=== PATIENT | female | born 1995 | race Caucasian/White ===

== ENCOUNTER 2018-02-18 14:07 | Emergency (ER) | payer SELFPAY ==
[2018-02-18 14:22] VITALS: BMI 36.3
--- NOTE | 2018-02-18 14:23 | PDOC ---
Rapid Medical Evaluation Time Seen by Provider: 02/18/18 14:19 Medical Evaluation: 02/18/18 14:19 The patient presents with a chief complaint of: Lower abdominal pain for two weeks. Feels like if she stands up too long she gets dizzy. LMP 01/03/18. Concerned she may be . Home negative I have performed a brief in-person evaluation of this patient; Pertinent physical exam findings: ambulatory, in no respiratory distress I have ordered the following: CBC, CMP, PT/INR, Lipase, UA, UC, Upreg The patient will proceed to the ED for further evaluation.
[2018-02-18 15:02] LABS: BASO % 0.6 % (0-2.0); EOS % 1.6 % (0-4.5); HEMATOCRIT 41.3 % (32.4-45.2); HEMOGLOBIN 14.1 GM/dL (10.7-15.3); MCH 29.2 pg (25.7-33.7); MCHC 34.2 g/dl (32.0-36.0); MEAN CELL VOLUME 85.5 fl (80-96); MEAN PLT VOLUME 8.5 fl (7.5-11.1); MONO % 5.2 % (3.8-10.2); NEUT % 64.6 % (42.8-82.8); PLATELET COUNT 418 K/MM3 (134-434); RBC 4.83 M/mm3 (3.60-5.2); RDW 13.7 % (11.6-15.6); WHITE BLOOD COUNT 12.4 K/mm3 (4.0-10.0)
--- NOTE | 2018-02-18 15:05 | PDOC ---
History of Present Illness - General History Source: Patient Exam Limitations: No Limitations - History of Present Illness Initial Comments: 02/18/18 16:45 The patient is a 22-year-old female, with no significant past medical history, who presents to the ED with 2 days of suprapubic abdominal pain and nausea. The patient's last menstrual period was on 01/03/18; patient is concerned if she is but did take two tests at home that were negative. The patient is sexually active with her , but has not had intercourse in the past few days due to the pain. She denies any history of cysts or fibroids. She reports experiencing occasional shortness of breath over the past 2 weeks; usually comes on when she is ambulating around her home. The patient denies any dysuria, hematuria, frequency, urgency, or hesitancy. Denies any vaginal bleeding or vaginal discharge. Allergies: NKA Surgical History: (3 years ago) Social History: Denies PCP: None <Kristine Beckham - Last Filed: 02/18/18 17:10> - General History Source: Patient Exam Limitations: No Limitations <Trudy Cordero - Last Filed: 02/20/18 19:29> - General Chief Complaint: Pain Stated Complaint: LOWER ABD PAIN Time Seen by Provider: 02/18/18 14:19 Past History <Kristine Beckham - Last Filed: 02/18/18 17:10> - Past Medical History COPD: No - Suicide/Smoking/Psychosocial Hx Smoking History: Never smoked Have you smoked in the past 12 months: No Information on smoking cessation initiated: No Hx Alcohol Use: No Drug/Substance Use Hx: No Substance Use Type: None <Trudy Cordero - Last Filed: 02/20/18 19:29> - Past Medical History Allergies/Adverse Reactions: Allergies Allergy/AdvReac Type Severity Reaction Status Date / Time No Known Allergies Allergy Verified 02/18/18 14:23 Review of Systems - Review of Systems Able to Perform ROS?: Yes Comments:: 02/18/18 16:45 GENERAL/CONSTITUTIONAL: No: fever, chills, weakness, loss of appetite. HEAD, EYES, EARS, NOSE AND THROAT: No: change in vision, ear pain, discharge, sore throat, throat swelling. CARDIOVASCULAR: No: chest pain, lightheadedness, palpitations, syncope RESPIRATORY: No: cough, shortness of breath, wheezing, hemoptysis, stridor. GASTROINTESTINAL: (+)suprapubic pain, nausea. No: vomiting, diarrhea, rectal bleeding, constipation. GENITOURINARY: No: dysuria, hematuria, frequency, urgency, flank pain. MUSCULOSKELETAL: No: back pain, neck pain, joint pain, muscle swelling or pain SKIN AND BREASTS: No: lesions, pallor, rash or easy bruising. NEUROLOGIC: No: headache, vertigo, paresthesias, weakness ENDOCRINE: No: unexplained weight gain or loss HEMATOLOGIC/LYMPHATIC: No: anemia, easy bleeding, swelling nodes <ChapincitoKristine - Last Filed: 02/18/18 17:10> *Physical Exam - Vital Signs Last Vital Signs Temp Pulse Resp BP Pulse Ox 98.4 F 114 H 16 141/94 100 02/18/18 14:20 02/18/18 14:20 02/18/18 14:20 02/18/18 14:20 02/18/18 14:20 - Physical Exam Comments: 02/18/18 16:46 GENERAL: The patient is in no acute distress. HEAD: Normal with no signs of trauma. EYES: PERRLA, EOMI, sclera anicteric, conjunctiva clear. ENT: Ears normal, nares patent, oropharynx clear without exudates. Moist mucous membranes. NECK: Normal range of motion, supple without lymphadenopathy, JVD, or masses. LUNGS: Breath sounds equal, clear to auscultation bilaterally. No wheezes, and no crackles. HEART:Regular rate and rhythm, normal S1 and S2 without murmur, rub or gallop. ABDOMEN: Soft, nontender, normoactive bowel sounds. No guarding, no rebound. EXTREMITIES: Normal range of motion, no edema. No clubbing or cyanosis. No erythema, or tenderness. NEUROLOGICAL: Cranial nerves II through XII grossly intact. Normal speech. No focal neurological deficits. MUSCULOSKELETAL: Back non-tender to palpation, no CVA tenderness SKIN: Warm, Dry, normal turgor, no rashes or lesions noted. Pelvic Exam: No discharge No cmt Normal external genitalia <ChapincitoKristine - Last Filed: 02/18/18 17:10> - Vital Signs Last Vital Signs Temp Pulse Resp BP Pulse Ox 98.4 F 114 H 16 141/94 100 02/18/18 14:20 02/18/18 14:20 02/18/18 14:20 02/18/18 14:20 02/18/18 14:20 <Trudy Cordero - Last Filed: 02/20/18 19:29> ED Treatment Course - LABORATORY CBC & Chemistry Diagram: 02/18/18 14:34 02/18/18 14:34 - ADDITIONAL ORDERS Additional order review: Laboratory Results 02/18/18 02/18/18 02/18/18 14:52 14:34 14:34 PT with INR INR Sodium 139 Potassium 4.2 Chloride 103 Carbon Dioxide 23 Anion Gap 13 BUN 9 Creatinine 0.6 Creat Clearance w eGFR > 60 Random Glucose 116 H Calcium 9.6 Total Bilirubin 0.2 AST 37 ALT 86 H Alkaline Phosphatase 77 Total Protein 8.3 H Albumin 4.1 Lipase 207 Urine Color Yellow Urine Appearance Slcloudy Urine pH 5.0 Ur Specific [place] 1.024 Urine Protein 1+ H Urine Glucose (UA) Negative Urine Ketones Trace H Urine Blood 1+ H Urine Nitrite Negative Urine Bilirubin Negative Urine Urobilinogen Negative Ur Leukocyte Esterase Trace Urine WBC (Auto) 4 Urine RBC (Auto) 5 Ur Epithelial Cells Rare Urine Bacteria Rare Urine Mucus Rare Urine HCG, Qual 02/18/18 02/18/18 14:34 14:15 PT with INR 11.30 INR 1.00 Sodium Potassium Chloride Carbon Dioxide Anion Gap BUN Creatinine Creat Clearance w eGFR Random Glucose Calcium Total Bilirubin AST ALT Alkaline Phosphatase Total Protein Albumin Lipase Urine Color Urine Appearance Urine pH Ur Specific [place] Urine Protein Urine Glucose (UA) Urine Ketones Urine Blood Urine Nitrite Urine Bilirubin Urine Urobilinogen Ur Leukocyte Esterase Urine WBC (Auto) Urine RBC (Auto) Ur Epithelial Cells Urine Bacteria Urine Mucus Urine HCG, Qual Negative 02/18/18 14:34 RBC 4.83 MCV 85.5 MCHC 34.2 RDW 13.7 MPV 8.5 Neutrophils % 64.6 Lymphocytes % 28.0 Monocytes % 5.2 Eosinophils % 1.6 Basophils % 0.6 <Kristine Beckham - Last Filed: 02/18/18 17:10> - LABORATORY CBC & Chemistry Diagram: 02/18/18 14:34 02/18/18 14:34 <Trudy Cordero - Last Filed: 02/20/18 19:29> Medical Decision Making - Medical Decision Making Ms Pinzon presents to the ER with a complaint of suprapubic pain, irregular period, She has taken 2 tests Both negative No discharge No fevers or chills No flank pain Pt also reports shortness of breath intermittently No cough No chest pain No dyspnea on exertion No orthopnea On exam: Suprapubic tenderness No CMT, no adnexal fullness, no concerning discharge DD: UTI, Cystitis, Unlikely PID, torsion, ruptured cyst, endometriosis SOB: Bronchitis, URI, pneumonia, effusion, pneumothorax, body habitus Unlikely PE given no chest pain, or hypoxia, or risk factors 02/18/18 15:55 Laboratory Tests 02/18/18 02/18/18 02/18/18 14:15 14:34 14:34 WBC 12.4 H Hgb 14.1 Hct 41.3 Plt Count 418 Neutrophils % 64.6 Lymphocytes % 28.0 INR 1.00 Sodium Potassium Chloride Carbon Dioxide Anion Gap BUN Creatinine Random Glucose Urine Ketones Urine Blood Urine WBC (Auto) Urine RBC (Auto) Ur Epithelial Cells Urine HCG, Qual Negative 02/18/18 02/18/18 14:34 14:52 WBC Hgb Hct Plt Count Neutrophils % Lymphocytes % INR Sodium 139 Potassium 4.2 Chloride 103 Carbon Dioxide 23 Anion Gap 13 BUN 9 Creatinine 0.6 Random Glucose 116 H Urine Ketones Trace H Urine Blood 1+ H Urine WBC (Auto) 4 Urine RBC (Auto) 5 Ur Epithelial Cells Rare Urine HCG, Qual test neg US pending CXR pending Pt signed out to Dr Kaur <Trudy Cordero - Last Filed: 02/20/18 19:29> *DC/Admit/Observation/Transfer - Attestations Scribe Attestion: 02/18/18 16:51 Documentation prepared by Kristine Beckham, acting as medical information officer for Trudy Cordero MD. <Kristine Beckham - Last Filed: 02/18/18 17:10> <Trudy Cordero - Last Filed: 02/20/18 19:29> Diagnosis at time of Disposition: Abdominal pain - Discharge Dispostion Disposition: HOME Condition at time of disposition: Improved - Referrals Referrals: Aranza Bateman MD [Staff Physician] - - Patient Instructions Printed Discharge Instructions: DI for Abdominal Pain-Adult Additional Instructions: Return to the emergency department immediately with ANY new, persistent or worsening symptoms including worsening abdominal pain, fevers, inability to tolerate oral intake, chest pain, shortness of breath or any other concerns. Stay well hydrated. You MUST call and follow up with your doctor tomorrow. Your emergency department visit is not complete without a followup with your doctor for reevaluation. Please make sure your doctor reviews the results of your emergency evaluation. Print Language: TONGAN
[2018-02-18 15:11] LABS: URINE APPEARANCE SLCLOUDY; URINE BILIRUBIN NEGATIVE (<2.0 mg/dL); URINE BLOOD 1+ (NEGATIVE); URINE COLOR YELLOW; URINE GLUCOSE (UA) NEGATIVE (NEGATIVE); URINE KETONE TRACE (NEGATIVE); URINE LEUK ESTERASE TRACE (NEGATIVE); URINE NITRITE NEGATIVE (NEGATIVE); URINE UROBILINOGEN NEGATIVE mg/dL (0.2-1.0)
[2018-02-18 15:12] LABS: URINE PROTEIN 1+ (NEGATIVE)
[2018-02-18 15:12] LABS: PROTHROMBIN TIME (PATIENT) 11.3 SEC (9.98-11.88)
[2018-02-18 15:20] LABS: ALBUMIN 4.1 g/dl (3.4-5.0); ANION GAP 13 (8-16); BILIRUBIN,TOTAL 0.2 mg/dL (0.2-1.0); BLOOD UREA NITROGEN 9 mg/dL (7-18); CALCIUM 9.6 mg/dL (8.5-10.1); CHLORIDE 103 mmol/L (98-107); CO2 23 mmol/L (21-32); CREATININE 0.6 mg/dL (0.55-1.02); GLUCOSE,RANDOM 116 mg/dL (74-106); POTASSIUM 4.2 mmol/L (3.5-5.1); SGOT/AST 37 U/L (15-37); SGPT/ALT 86 U/L (12-78); SODIUM 139 mmol/L (136-145); TOT PROT 8.3 g/dl (6.4-8.2)
[2018-02-18 15:20] LABS: EPI CELLS RARE /HPF (FEW); URINE BACTERIA RARE /hpf (NONE SEEN); URINE MUCUS RARE
[2018-02-18 15:21] LABS: ALK PHOS 77 U/L (45-117)
--- NOTE | 2018-02-18 19:54 | PDOC ---
*Physical Exam - Vital Signs Last Vital Signs Temp Pulse Resp BP Pulse Ox 98.4 F 114 H 16 141/94 100 02/18/18 14:20 02/18/18 14:20 02/18/18 14:20 02/18/18 14:20 02/18/18 14:20 ED Treatment Course - LABORATORY CBC & Chemistry Diagram: 02/18/18 14:34 02/18/18 14:34 - ADDITIONAL ORDERS Additional order review: Laboratory Results 02/18/18 02/18/18 02/18/18 14:52 14:34 14:34 PT with INR INR Sodium 139 Potassium 4.2 Chloride 103 Carbon Dioxide 23 Anion Gap 13 BUN 9 Creatinine 0.6 Creat Clearance w eGFR > 60 Random Glucose 116 H Calcium 9.6 Total Bilirubin 0.2 AST 37 ALT 86 H Alkaline Phosphatase 77 Total Protein 8.3 H Albumin 4.1 Lipase 207 Urine Color Yellow Urine Appearance Slcloudy Urine pH 5.0 Ur Specific [place] 1.024 Urine Protein 1+ H Urine Glucose (UA) Negative Urine Ketones Trace H Urine Blood 1+ H Urine Nitrite Negative Urine Bilirubin Negative Urine Urobilinogen Negative Ur Leukocyte Esterase Trace Urine WBC (Auto) 4 Urine RBC (Auto) 5 Ur Epithelial Cells Rare Urine Bacteria Rare Urine Mucus Rare Urine HCG, Qual 02/18/18 02/18/18 14:34 14:15 PT with INR 11.30 INR 1.00 Sodium Potassium Chloride Carbon Dioxide Anion Gap BUN Creatinine Creat Clearance w eGFR Random Glucose Calcium Total Bilirubin AST ALT Alkaline Phosphatase Total Protein Albumin Lipase Urine Color Urine Appearance Urine pH Ur Specific [place] Urine Protein Urine Glucose (UA) Urine Ketones Urine Blood Urine Nitrite Urine Bilirubin Urine Urobilinogen Ur Leukocyte Esterase Urine WBC (Auto) Urine RBC (Auto) Ur Epithelial Cells Urine Bacteria Urine Mucus Urine HCG, Qual Negative 02/18/18 14:34 RBC 4.83 MCV 85.5 MCHC 34.2 RDW 13.7 MPV 8.5 Neutrophils % 64.6 Lymphocytes % 28.0 Monocytes % 5.2 Eosinophils % 1.6 Basophils % 0.6 Medical Decision Making - Medical Decision Making 02/18/18 19:53 pt signed out to al 22y F presenting with complaint of 2 days of suprapubic pain, w/o omiting, fever /chills, urinary sypmtoms, diarrhea. pts labs unremarkble here not , no signs of UTI [facility] [place] 02/18/18 21:50 The patient's labs were reviewed Her chest x-ray reveals shallow inspiration without acute findings The patient's ultrasound results were also reviewed, there was an enalrged right ovary with arterial flow - canot r/o intermittent torsion/detorsion - however pts symptoms do not suggest torsion (more epigastric, constant, recurrent, not severe) pt feeling improved no pain currently and abd is soft nontender. will dc with urogynecology physician fu return precautions were discussed I discussed the physical exam findings, ancillary test results and final diagnoses with the patient. I answered all of the patient's questions. The patient was satisfied with the care received and felt comfortable with the discharge plan and treatment plan. The patient will call their primary care physician within 24 hours to arrange follow-up and will return to the Emergency Department with any new, persistent or worsening symptoms. *DC/Admit/Observation/Transfer Diagnosis at time of Disposition: Abdominal pain Qualifiers: Abdominal location: lower abdomen, unspecified Qualified Code(s): R10.30 - Lower abdominal pain, unspecified - Discharge Dispostion Disposition: HOME Condition at time of disposition: Improved Admit: No - Referrals Referrals: Aranza Bateman MD [Staff Physician] - - Patient Instructions Printed Discharge Instructions: DI for Abdominal Pain-Adult Additional Instructions: Return to the emergency department immediately with ANY new, persistent or worsening symptoms including worsening abdominal pain, fevers, inability to tolerate oral intake, chest pain, shortness of breath or any other concerns. Stay well hydrated. You MUST call and follow up with your doctor tomorrow. Your emergency department visit is not complete without a followup with your doctor for reevaluation. Please make sure your doctor reviews the results of your emergency evaluation. Print Language: SERBIAN - Post Discharge Activity
[2018-02-18 22:18] VITALS: BP 104/50; PULSE 95; TEMP 98
== END 2018-02-18 22:19 | disposition home or self-care (01) ==
LOC: JER 14:07
DX: R10.30 Lower abdominal pain, unspecified (principal)
CPT/HCPCS: 36415; 71046-TC-FY; 76830-TC; 80053; 81003; 81015; 83690; 84703; 85025; 85610; 87070; 87086; 87205; 87491; 87591; 99282-25